=== PATIENT | male | born 1945 | race Caucasian/White ===

== ENCOUNTER → 2023-03-14 | Outpatient (CLI) | payer MEDICARE, OTHER ==
--- NOTE | 2023-03-14 09:25 | CT ---
EXAMINATION TYPE: CT abdomen pelvis wo con DATE OF EXAM: 03/14/2023 COMPARISON: None available. HISTORY: Abdominal pain. CT DLP: 994.9 mGycm Automated exposure control for dose reduction was used. TECHNIQUE: Helical acquisition of images was performed from the lung bases through the pelvis. FINDINGS: LOWER CHEST : The visualized lung bases are clear. There are no pleural or pericardial effusions. T here are calcified subcarinal lymph nodes right hilar lymph nodes are partially visualized. Severe di ffuse coronary artery calcifications are seen. ABDOMEN: Liver and Biliary system: Normal. Adrenal glands: Normal. Kidneys and ureters: There is a 4 mm nonobstructing stone in the upper pole right kidney. The kidney s and ureters otherwise appear unremarkable. Spleen: Normal. Pancreas: Normal. Gallbladder: Normal. Lymph nodes, Peritoneum and mesentery: There is no mesenteric or retroperitoneal lymphadenopathy. Gastrointestinal tract: There are no dilated loops of bowel or free intraperitoneal air. . The appe ndix is normal. There is mild descending colonic and sigmoid colonic diverticulosis without evidence of diverticulitis. Aorta/IVC: There is moderate vascular calcification throughout the abdominal aorta without evidence of aneurysmal dilation.. IVC normal. Abdominal wall: Normal. PELVIS: Fluid: There is no free fluid in the pelvis. Lymph Nodes: There is no pelvic or inguinal lymphadenopathy.. Urinary bladder: Normal. BONES: There is a right total hip arthroplasty. Scattered degenerative disc and facet changes are ot herwise seen throughout the spine. There are no acute osseous abnormalities. ADDITIONAL SIGNIFICANT FINDINGS: There is a large right-sided hydrocele. Urology consult recommende d.. IMPRESSION: 1. Nonobstructing right renal stone. 2. No bowel obstruction or appendicitis. 3. Diverticulosis without evidence of diverticulitis. 4. Large right hydrocele. Urology consult recommended. 5. Severe coronary artery calcification.
== END | disposition home or self-care (01) ==
LOC: RADCTMAIN 08:47
PROVIDERS: ATTEND Family Medicine
DX: I25.10 Atherosclerotic heart disease of native coronary artery without angina pectoris (principal); N20.0 Calculus of kidney; N43.3 Hydrocele, unspecified; K57.30 Diverticulosis of large intestine without perforation or abscess without bleeding
CPT/HCPCS: 74176